=== PATIENT | male | born 1955 | race Two or more races ===

== ENCOUNTER 2018-04-19 15:42 | Emergency (ER) | payer MEDICARE ==
[~2018-04-19] VITALS: Ht 165.1 cm; Wt 79.2 kg
[2018-04-19 15:49] VITALS: BP 146/88
== END 2018-04-19 17:52 | disposition home or self-care (01) ==
LOC: ED 16:49
DX: G44.229 Chronic tension-type headache, not intractable (principal)
CPT/HCPCS: 70450; 99284